=== PATIENT | male | born 1965 | race Caucasian/White ===

== ENCOUNTER → 2017-07-23 | Outpatient (CLI) | payer OTHER ==
[~2017-07-23] MED LIST: ADVAIRDISKUS; ALEVE220 M1 PO; BENADRYL ALLERG25 MG PO; CALCIUM 500 +1 EAC5 PO; CLARITIN10 MG PO; DIGESTIVE ENZY1 EAC3 PO; PRINIVIL10 MG PO; RANITIDINE 150150 M1 PO; RIFAMPIN 300 M300 M1 PO; SINGULAIR 10 MG10 M1; THERA-M CAPLET1 EACH PO; XANAX 0.5 MG0.5 M1 PO; ZANTAC 150MG T150 M1 PO; ZOCOR 20 MG TAB20 M1 PO; ZYRTEC1 MG/1 ML PO
== END ==
LOC: ULTRA 08:17
DX: K76.0 Fatty (change of) liver, not elsewhere classified (principal)

== ENCOUNTER 2018-05-30 10:23 | Emergency (ER) | payer OTHER ==
[~2018-05-30] VITALS: Ht 170.2 cm; Wt 71.7 kg
[2018-05-30] MEDS ORDERED: STOOL SOFTENER100 M1 PO (11:40)
[2018-05-30] MEDS ORDERED: MELATONIN3 MG PO (11:40)
== END 2018-05-30 13:19 | disposition home or self-care (01) ==
LOC: ER 10:23
DX: S62.002A Unspecified fracture of navicular [scaphoid] bone of left wrist, initial encounter for closed fracture (principal); M25.572 Pain in left ankle and joints of left foot; M79.641 Pain in right hand; J45.909 Unspecified asthma, uncomplicated; I10 Essential (primary) hypertension; F41.9 Anxiety disorder, unspecified; Z91.048 Other nonmedicinal substance allergy status; Z88.1 Allergy status to other antibiotic agents; Z88.8 Allergy status to other drugs, medicaments and biological substances; Z88.0 Allergy status to penicillin; W18.39XA Other fall on same level, initial encounter; Y99.0 Civilian activity done for income or pay; Y92.89 Other specified places as the place of occurrence of the external cause; Y99.8 Other external cause status

== ENCOUNTER 2019-08-15 16:55 | Emergency (ER) | payer OTHER ==
[~2019-08-15] VITALS: Ht 170.2 cm; Wt 73.9 kg
[~2019-08-15 16:55] MED LIST changes: +MELATONIN3 MG PO; +STOOL SOFTENER100 M1 PO
[2019-08-15 17:15] LABS: BASOPHILS 0.2 % (0.0-2.0); EOSINOPHILS 1.5 % (0.0-3.0); HEMATOCRIT 44.2 % (42.0-52.0); HEMOGLOBIN 15.3 gm/dL (14.0-18.0); LYMPHOCYTES 6.2 % (24.0-44.0); MCH 33.1 pg (26.0-34.0); MCHC 34.6 g/dL (28.0-37.0); MCV 95.8 fL (80.0-100.0); MONOCYTES 7.5 % (1.0-8.0); PLATELET COUNT 212 thou/uL (150-400); POLYS 84.6 % (36.0-66.0); RBC 4.61 mil/uL (4.50-6.00); RDW 13.3 % (10.5-14.5); WBC 10.6 thou/uL (4.0-11.0)
[2019-08-15] MEDS ORDERED: FLONASE 0.05%50 MCG NARES (17:19)
[2019-08-15 17:22] LABS: CALCIUM 9.1 mg/dL (8.5-10.1); CREATININE 1.1 mg/dL (0.7-1.3); POTASSIUM 3.5 mmol/L (3.5-5.1)
[2019-08-15 17:28] LABS: ALBUMIN 3.9 g/dL (3.4-5.0); TOTAL BILIRUBIN 0.5 mg/dL (<0.1-1.0); TOTAL PROTEIN 7.2 g/dL (6.4-8.2)
[2019-08-15] MEDS ORDERED: ONDANSETRON HCL4 M2 PO (21:08)
[2019-08-15 21:30] VITALS: BP 111/63
== END 2019-08-15 21:30 | disposition home or self-care (01) ==
LOC: ER 16:55
PROVIDERS: Nurse Practitioner Family
DX: K52.9 Noninfective gastroenteritis and colitis, unspecified (principal); J45.909 Unspecified asthma, uncomplicated; I10 Essential (primary) hypertension; F41.9 Anxiety disorder, unspecified; Z88.1 Allergy status to other antibiotic agents; Z88.8 Allergy status to other drugs, medicaments and biological substances

== ENCOUNTER 2020-01-21 21:43 | Emergency (ER) | payer OTHER ==
[~2020-01-21] VITALS: Ht 170.2 cm; Wt 73.9 kg
[~2020-01-21 21:43] MED LIST changes: +FLONASE 0.05%50 MCG NARES; +ONDANSETRON HCL4 M2 PO
[2020-01-21] MEDS ORDERED: PREDNISONE 5 MG5 M1 (21:58)
[2020-01-21] MEDS ORDERED: HYDROXYZINE HCL25 M2 PO (21:59)
[2020-01-21 22:56] VITALS: BP 136/79
== END 2020-01-21 22:57 | disposition home or self-care (01) ==
LOC: ER 21:43
DX: L50.9 Urticaria, unspecified (principal); J45.909 Unspecified asthma, uncomplicated; I10 Essential (primary) hypertension; Z88.1 Allergy status to other antibiotic agents; Z88.0 Allergy status to penicillin; Z88.8 Allergy status to other drugs, medicaments and biological substances

== ENCOUNTER → 2020-05-28 | Outpatient (CLI) | payer OTHER ==
[~2020-05-28] MED LIST changes: +HYDROXYZINE HCL25 M2 PO; +PREDNISONE 5 MG5 M1
[2020-05-28 09:28] LABS: ABSOLUTE NEUTROPHILS 2.9 thou/uL (1.4-8.2); BASOPHILS 0.7 % (0.0-2.0); EOSINOPHILS 1.6 % (0.0-3.0); HEMOGLOBIN 15.4 gm/dL (14.0-18.0); LYMPHOCYTES 32.1 % (24.0-44.0); MCH 33.6 pg (26.0-34.0); MCHC 34.2 g/dL (28.0-37.0); MCV 98.2 fL (80.0-100.0); MONOCYTES 9.8 % (1.0-8.0); PLATELET COUNT 274 thou/uL (150-400); POLYS 55.8 % (36.0-66.0); RBC 4.59 mil/uL (4.50-6.00); RDW 13.1 % (10.5-14.5); WBC 5.2 thou/uL (4.0-11.0)
[2020-05-28 10:34] LABS: ALBUMIN 4.2 g/dL (3.4-5.0); CALCIUM 9.5 mg/dL (8.5-10.1); CREATININE 1.2 mg/dL (0.7-1.3); POTASSIUM 4.5 mmol/L (3.5-5.1); TOTAL BILIRUBIN 0.3 mg/dL (0.2-1.0); TOTAL PROTEIN 7.2 g/dL (6.4-8.2)
[2020-05-28 22:06] LABS: PSA 3.9 ng/mL (0.0-4.0)
[2020-05-28 23:06] LABS: MICROALBUMIN-RND URINE < 3.0 ug/mL (Not Estab.)
== END ==
LOC: LABMALL 08:33
DX: Z12.5 Encounter for screening for malignant neoplasm of prostate (principal); E11.9 Type 2 diabetes mellitus without complications

== ENCOUNTER → 2020-12-20 | Outpatient (CLI) | payer OTHER ==
[2020-12-20 08:32] LABS: CALCIUM 10.1 mg/dL (8.5-10.1); CREATININE 1.2 mg/dL (0.7-1.3)
[2020-12-20 08:33] LABS: POTASSIUM 4.5 mmol/L (3.5-5.1)
== END ==
LOC: LAB 07:50
DX: I10 Essential (primary) hypertension (principal)

== ENCOUNTER → 2021-06-03 | Outpatient (CLI) | payer OTHER ==
[2021-06-03 09:08] LABS: BASOPHILS 0.8 % (0.0-2.0); EOSINOPHILS 1.6 % (0.0-3.0); HEMATOCRIT 42.3 % (42.0-52.0); HEMOGLOBIN 14.6 gm/dL (14.0-18.0); LYMPHOCYTES 29.1 % (24.0-44.0); MCH 33.6 pg (26.0-34.0); MCHC 34.6 g/dL (28.0-37.0); MONOCYTES 8.8 % (1.0-8.0); PLATELET COUNT 264 thou/uL (150-400); POLYS 59.7 % (36.0-66.0); RBC 4.36 mil/uL (4.50-6.00)
[2021-06-03 09:30] LABS: ANION GAP 7 mmol/L (7-16); BUN 11 mg/dL (7-18); CALCIUM 8.8 mg/dL (8.5-10.1); CHLORIDE 103 mmol/L (98-107); CHOLESTEROL 111 mg/dL (<200); CO2 29 mmol/L (21-32); CREATININE 1.1 mg/dL (0.7-1.3); GLUCOSE 100 mg/dL (74-106); HDL CHOLESTEROL 40 mg/dL (>40); LDL CHOLESTEROL 38 mg/dL (<100); POTASSIUM 4.4 mmol/L (3.5-5.1); SGOT 34 U/L (15-37); SGPT 86 U/L (30-65); SODIUM 139 mmol/L (136-145); TC:HDL 2.8 Ratio (Not establshd); TOTAL BILIRUBIN 0.2 mg/dL (0.2-1.0); TOTAL PROTEIN 7.3 g/dL (6.4-8.2); TRIGLYCERIDE 166 mg/dL (<150); VLDL 33 mg/dL (<40)
[2021-06-03 19:07] LABS: MICROALBUMIN-RND URINE 9.1 ug/mL (Not Estab.); PSA 0.7 ng/mL (0.0-4.0)
[2021-06-04 02:06] LABS: GLYCOHEMOGLOBIN (HGB A1C) 6.3 % (4.8-5.6)
== END ==
LOC: LAB 07:19
DX: Z00.00 Encounter for general adult medical examination without abnormal findings (principal); Z12.5 Encounter for screening for malignant neoplasm of prostate

== ENCOUNTER → 2021-11-25 | Outpatient (CLI) | payer OTHER ==
[2021-11-25 15:58] LABS: CALCIUM 9.2 mg/dL (8.5-10.1); CREATININE 1.2 mg/dL (0.7-1.3); POTASSIUM 3.7 mmol/L (3.5-5.1)
[2021-11-27 06:07] LABS: GLYCOHEMOGLOBIN (HGB A1C) 6.1 % (4.8-5.6)
== END ==
LOC: LAB 14:59
DX: E11.9 Type 2 diabetes mellitus without complications (principal)